=== PATIENT | male | born 1990 | race Two or more races ===

== ENCOUNTER 2022-12-06 08:36 | Emergency (ER) | payer MEDICAID, SELFPAY ==
[2022-12-06 08:40] VITALS: BP 127/71; PULSE 85; RESP 16; TEMP 36.7; O2SAT 98; BMI 27.4
--- NOTE | 2022-12-06 09:07 | ED.SKABFB ---
HPI - Skin/Abscess/Foreign Bdy General Chief complaint: Skin/Abscess/Foreign Body Stated complaint: Posion Leann? Rash all over body Time Seen by Provider: 12/06/22 09:06 Source: patient, RN notes reviewed and old records reviewed Mode of arrival: ambulatory History of Present Illness HPI narrative: 32-year-old male with no significant past medical history presenting to the ED complaining of pruritic rash diffusely over body x 3 days s/p doing yard work. Patient suspects poison leann or poison oak. Denies other new exposures, new medications, SOB, wheezing, throat closing sensation, known tick or insect bites MD complaint: rash Related Data Previous Rx's Medication Instructions Recorded cetirizine 10 mg capsule (Zyrtec) 10 mg PO DAILY PRN allergy 12/06/22 symptoms #14 caps diphenhydramine HCl 25 mg capsule 25 mg PO TID PRN itching #14 caps 12/06/22 (Benadryl) hydrocortisone 1 % lotion 1 appl topical BID PRN rash #120 mL 12/06/22 (Anti-Itch (hydrocortisone)) prednisone 20 mg tablet 40 mg PO DAILY 5 days #10 tabs 12/06/22 Allergies Allergy/AdvReac Type Severity Reaction Status Date / Time No Known Allergies Allergy Unverified 03/03/20 19:39 [No Known Allergies*] Review of Systems Review of Systems: Constitutional:No Fever, No Chills ENT/Mouth: No Ear Pain, No Nasal Congestion, No Hoarseness, No sore throat, No Rhinorrhea, No Swallowing Difficulty Cardiovascular: No Chest Pain, No SOB Respiratory: No Cough, No Sputum, No Wheezing Gastrointestinal: No Nausea, No Vomiting, No Diarrhea, No Constipation, No Abdominal pain Musculoskeletal: No joint pain, No Myalgias, No Joint Swelling Skin: No Skin Lesions, + rash Neuro: No Weakness, No Numbness, No Paresthesias Yes all other systems are reviewed and are negative Constitutional: Constitutional: Reports as per [facility] Past Medical History Attestation statement: The following information was validated with the patient. Source: old records reviewed Social History Social History Advance Directives: No Advance Directives Information Provided: No Physical Exam Vital Signs: Vital Signs: Last Vital Signs Temp 98.0 F 12/06/22 08:40 Pulse 85 12/06/22 08:40 Resp 16 12/06/22 08:40 BP 127/71 12/06/22 08:40 Pulse Ox 98 12/06/22 08:40 O2 Del Method Room Air 12/06/22 08:40 BMI result Body Mass Index 27.4 Const: General: cooperative, healthy appearing and no acute distress Orientation/consciousness: patient oriented x3 Limitations: no limitations HEENT: Head: Yes normal to inspection and Yes atraumatic Ears: hearing grossly normal bilaterally General nose exam: Normal external nose present Face and sinus: Yes normal facial exam Mouth: Normal oral and palatal mucosa present Throat: Yes posterior oropharynx normal, Yes tonsils normal, Yes uvula midline, No uvula laterally displaced and No uvular edema Eyes: General: appearance normal, both eyes and all related structures EOM: EOMs intact bilaterally Neck: Neck: Yes normal visual inspection and Yes no meningeal signs Resp: Effort & Inspection: normal respiratory effort, no respiratory distress and no stridor Auscultation: clear to auscultation bilaterally Cardio: Rate: regular rate Skin: Other: + diffuse erythematous patches/raised streaks noted to abdomen/chest, upper extremities, and lower extremities. No vesicles. No warmth, drainage, fluctuance or induration. No mucous membrane or palm/sole involvement Wounds: no wounds Neuro: General: patient oriented x3, tone normal and no meningeal signs Gait exam (Neuro): Normal gait present Extrem: General: Yes normal to inspection Medications Administered Discontinued Medications Generic Name Dose Route Start Last Admin Trade Name Freq PRN Reason Stop Dose Admin Diphenhydramine HCl 25 mg 12/06/22 09:17 12/06/22 09:28 Diphenhydramine Hcl 25 Mg Capsule PO 12/06/22 09:18 25 mg ONCE ONE Administration Loratadine 10 mg 12/06/22 09:17 12/06/22 09:28 Loratadine 10 Mg Tablet PO 12/06/22 09:18 10 mg ONCE ONE Administration Prednisone 40 mg 12/06/22 09:17 12/06/22 09:28 Prednisone 20 Mg Tablet PO 12/06/22 09:18 40 mg ONCE ONE Administration Medical Decision Making Medical Decision Making MDM Narrative: 32-year-old male with no significant past medical history presenting to the ED complaining of pruritic rash diffusely over body x 3 days s/p doing yard work. On exam vital signs stable, NAD, nontoxic appearing, physical exam consistent with poison leann or poison oak vs dermatitis. Lower suspicion for allergic reaction, no evidence of anaphylaxis. Low suspicion for SJS/TENS Plan: P.o. prednisone, topical hydrocortisone, Benadryl Results discussed with patient including worrisome signs and symptoms and strict return precautions, and when to return to the emergency department. They verbalized understanding and feel safe for discharge at this time. Differential Diagnosis Differential Diagnoses: The differential diagnosis associated with the presentation includes As above Admission/Observation Consideration of admission/observation: Escalation of care including admission/observation considered Lab Data MDM Lab Attestation statement: I reviewed the patient's lab results. Radiology Impression Discussion of test interpretation with radiology: I have reviewed the radiologist's reading. External Record Review External record reviewed: Inpatient record, Office record, Outpatient record, Prior outpatient labs, Prior outpatient radiology, Primary care record and Outside ED record Tests considered The following testing was considered but not selected: As above Discharge Plan Discharge Clinical Impression: Poison leann Patient Disposition: Home, Self-Care Instructions: Poison Leann (ED) Additional Instructions: Avoid itching her rash. Prednisone as an oral steroid, hydrocortisone as a topical steroid, apply to rash only, avoid application to face, genital regions, hands and feet as potentially can discolored your scan. In addition you should take Benadryl however this will make you drowsy, do not drive while taking Benadryl Zyrtec can be taking daily in the morning this will not make you drowsy If symptoms persist or worsen you develop any shortness of breath, wheezing, throat closing sensation return to the ED Prescriptions: New prednisone 20 mg tablet 40 mg PO DAILY 5 Days Qty: 10 0RF diphenhydramine HCl [Benadryl] 25 mg capsule 25 mg PO TID PRN (Reason: itching) Qty: 14 0RF hydrocortisone [Anti-Itch (HC)] 1 % lotion 1 appl topical BID PRN (Reason: rash) Qty: 120 0RF Rx Instructions: Avoid application to face, Teressa so region, hands and feet as potentially can discolored skin Zyrtec 10 mg capsule 10 mg PO DAILY PRN (Reason: allergy symptoms) Qty: 14 0RF Referrals: [facility] [place] [Primary Care Provider] - 5 days Interventions: ED Discharge Assessment Last Done: 12/06/22 09:36
[2022-12-06] MEDS: diphenhydrAMINE HCL 25 MG CAPSULE PO (09:28)
[2022-12-06] MEDS: predniSONE 20 MG TABLET 40 MG PO (09:28)
[2022-12-06] MEDS: Loratadine 10 MG TABLET PO (09:28)
--- NOTE | 2022-12-06 09:34 | PC.NURSE ---
Patient presents after interaction with poison arlen. Patient denies pain but has itchy to most of his body. Patient is otherwise well appearing.
== END 2022-12-06 09:37 | disposition home or self-care (01) ==
PROVIDERS: Emergency Provider Student in an Organized Health Care Education/Training Program
DX: L23.7 Allergic contact dermatitis due to plants, except food (principal)
CPT/HCPCS: 99283

== ENCOUNTER 2023-03-07 21:08 | Emergency (ER) | payer MEDICAID, SELFPAY ==
--- NOTE | ~2023-03-07 | XR_ITS ---
EXAMINATION: XR WRIST, LEFT XR HAND, LEFT CLINICAL INFORMATION: Dogbite. COMPARISON: Radiograph of the left hand 06/14/2019. TECHNIQUE: 3 views of the left wrist/hand were obtained. FINDINGS: No acute fractures or malalignment. No unexpected radiopaque foreign bodies. No osseous erosions or abnormal soft tissue calcifications. Soft tissue thickening and possibly laceration along the ventral soft tissues of the wrist visualized on the lateral view. XR/XR hand wrist LT IMPRESSION: 1. No acute fractures or malalignment. 2. No unexpected radiopaque foreign bodies. 3. Soft tissue thickening and possibly laceration along the ventral aspect of the wrist. Correlate with physical examination.
[2023-03-07 21:52] VITALS: BP 118/72; PULSE 66; RESP 14; TEMP 37.1; O2SAT 98; BMI 31.9
[2023-03-08 00:29] VITALS: BP 119/72; PULSE 60; RESP 14; O2SAT 99
[2023-03-08] MEDS: Amoxicillin/Potassium Clav 875 MG TABLET PO (03:18)
[2023-03-08] MEDS: Bacitracin Oint 0.9 GM PACKET 1 APPL TOPICAL (03:18)
--- NOTE | 2023-03-08 03:20 | ED_ITS ---
HPI - Animal Bite General Chief Complaint: Animal Bite Stated Complaint: dog bite left hand Time Seen by Provider: 03/08/23 03:11 Source: patient Mode of arrival: ambulatory Limitations: no limitations History of Present Illness HPI narrative: Pain got bit by his own dog when he tried to feed him left hand dog behaving normally otherwise came with puncture wound on the dorsum and the plantar aspect of the left hand Related Data Previous Rx's Medication Instructions Recorded cetirizine 10 mg capsule (Zyrtec) 10 mg PO DAILY PRN allergy 12/06/22 symptoms #14 caps diphenhydramine HCl 25 mg capsule 25 mg PO TID PRN itching #14 caps 12/06/22 (Benadryl) hydrocortisone 1 % lotion 1 appl topical BID PRN rash #120 mL 12/06/22 (Anti-Itch (hydrocortisone)) prednisone 20 mg tablet 40 mg (2 x 20 mg) PO DAILY 5 days 12/06/22 #10 tabs amoxicillin 875 mg-potassium 1 tab PO BID #20 tabs 03/08/23 clavulanate 125 mg tablet Allergies Allergy/AdvReac Type Severity Reaction Status Date / Time No Known Allergies Allergy Unverified 03/03/20 19:39 [No Known Allergies*] Review of Systems 2 Review of Systems: Yes all other systems are reviewed and are negative PMFSH Social History Social History Advance Directives: No Advance Directives Information Provided: Yes Physical Exam ED Vital Signs: Vital Signs - 24 hr 03/07/23 21:52 03/08/23 00:29 Temperature 98.8 F Pulse Rate 66 60 Respiratory Rate 14 14 Blood Pressure 118/72 119/72 Pulse Oximetry 98 99 Oxygen Delivery Method Room Air Room Air BMI result Body Mass Index 31.9 Appearance: Alert. Oriented X3. No acute distress. Extrem Hand/finger images: 2 1. Puncture wound left palmar aspect and dorsum neurovascular intact bones intact Medications Administered Discontinued Medications Generic Name Dose Route Start Last Admin Trade Name Freq PRN Reason Stop Dose Admin Amoxicillin/Clavulanate Potassium 875 mg 03/08/23 03:12 03/08/23 03:18 Amoxicillin/Potassium Clav 875 Mg Tablet PO 03/08/23 03:13 875 mg ONCE ONE Administration Bacitracin 1 appl 03/08/23 03:13 03/08/23 03:18 Bacitracin Oint 0.9 Gm Packet TOPICAL 03/08/23 03:14 1 appl ONCE ONE Administration Protocol Medical Decision Making Medical Decision Making MDM Narrative: UNcompleted dog bite which can be observed at home discharged on Augmentin wound was cleaned in the ER Radiology Impression Discussion of test interpretation with radiology: I have reviewed the radiologist's reading. Discharge Plan Discharge Clinical Impression: Dog bite Patient Disposition: Home, Self-Care Instructions: Animal Bite (ED) Additional Instructions: Local care as advised Take antibiotics to avoid infection Prescriptions: New amoxicillin-pot clavulanate 875-125 mg tablet 1 tab PO BID Qty: 20 0RF No Action prednisone 20 mg tablet 40 mg PO DAILY 5 Days Qty: 10 0RF diphenhydramine HCl [Benadryl] 25 mg capsule 25 mg PO TID PRN (Reason: itching) Qty: 14 0RF hydrocortisone [Anti-Itch (HC)] 1 % lotion 1 appl topical BID PRN (Reason: rash) Qty: 120 0RF Rx Instructions: Avoid application to face, Teressa so region, hands and feet as potentially can discolored skin Zyrtec 10 mg capsule 10 mg PO DAILY PRN (Reason: allergy symptoms) Qty: 14 0RF
== END 2023-03-08 03:24 | disposition home or self-care (01) ==
PROVIDERS: Emergency Provider Internal Medicine
DX: S61.452A Open bite of left hand, initial encounter (principal); W54.0XXA Bitten by dog, initial encounter; Y93.9 Activity, unspecified; Y92.9 Unspecified place or not applicable; Y99.9 Unspecified external cause status; Z79.899 Other long term (current) drug therapy
CPT/HCPCS: 73110; 73130; 99282; 99283

== ENCOUNTER 2023-05-23 18:10 | Inpatient (IN) | payer OTHER, SELFPAY ==
[2023-05-23 18:37] VITALS: BMI 23.0
[2023-05-23 18:38] VITALS: BP 137/77; PULSE 88; RESP 18; TEMP 36.8; O2SAT 97
--- NOTE | 2023-05-23 18:39 | PC.ADMIT ---
Nursing admission note: 32 year old male DX: Unspecified depressive disorder. Referred for treatment by CARE team. Signed conditional voluntary for admission. Patient was seen by [facility] specialist due to suicidal ideation. Reported increased depression due to homelessness and life stress. Reported feeling overwhelmed and hopeless. Reports no prior hospitalizations, no current out patient providers. Prior attempt to hang self approximately 2 years ago. History of past self harming behavior of cutting. No acute medical problems, history of asthma as child. NKA. COVID negative. TOX screen positive for cannabis. Nursing assessment to be completed. See crisis evaluation for details.
[2023-05-23] MEDS: Acetaminophen 325 MG TABLET 650 MG PO (19:02)
[2023-05-23 20:00] VITALS: BP 117/64; PULSE 69; RESP 16; TEMP 36.7; O2SAT 99
[2023-05-23] MEDS: traZODone HCL 50 MG TABLET PO ×2 (21:25→23:10)
[2023-05-23] MEDS: hydrOXYzine HCL 25 MG TABLET PO (23:34)
[2023-05-24 08:32] VITALS: BP 121/82; PULSE 93; RESP 16; TEMP 36.2; O2SAT 100
[2023-05-24 08:37] LABS: Estimated Average Glucose 100 mg/dL; Hemoglobin A1c % 5.1 % (<6.0)
[2023-05-24 08:50] LABS: Alanine Aminotransferase 27 U/L (0-40); Albumin Level 4.5 g/dL (3.5-5.0); Alkaline Phosphatase 61 U/L (39-117); Anion Gap 13 (12-20); Aspartate Amino Transferase 26 U/L (5-37); Bilirubin Total 0.3 mg/dL (0.0-1.0); Blood Urea Nitrogen 12 mg/dL (9-16); Calcium 9.5 mg/dL (8.4-10.2); Carbon Dioxide 24 mmol/L (22-29); Chloride 108 mmol/L (96-108); Cholesterol 142 mg/dL (<200); Creatinine Clr Calc Pharmacy 93.9; Estimated Glomerular Filt Rate > 60; Glucose Fasting 102 mg/dL (60-99); HDL Cholesterol 40 mg/dL (>40); LDL Cholesterol Calculated 72 mg/dL (<100); Magnesium 1.8 mg/dL (1.6-2.6); Potassium 4.7 mmol/L (3.3-5.1); Sodium 140 mmol/L (135-145); Total Protein 7.4 g/dL (6.5-8.0); Triglycerides 154 mg/dL (<150)
[2023-05-24 09:04] LABS: Free T4 (Free Thyroxine) 0.74 ng/dL (0.71-1.85); Thyroid Stimulating Hormone 2.03 uIU/mL (0.32-4.0)
[2023-05-24 09:09] LABS: Glucose, Whole Blood 97 mg/dL (60-115)
[2023-05-24 09:16] LABS: Folate 8.8 ng/mL (> or = 4.0); Vitamin B12 413 pg/mL (200-900)
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
[2023-05-24] MEDS: Acetaminophen 325 MG TABLET 650 MG PO ×2 (12:22→22:38)
[2023-05-24] MEDS: hydrOXYzine HCL 25 MG TABLET PO ×2 (15:43→21:03)
[2023-05-24] MEDS: Thiamine HCL 100 MG TABLET 50 MG PO (17:06)
[2023-05-24] MEDS: LORazepam 1 MG TABLET PO ×2 (17:06→22:40)
[2023-05-24] MEDS: Multivitamin TABLET 1 TAB PO (17:06)
[2023-05-24] MEDS: Folic Acid 1 MG TABLET PO (17:06)
[2023-05-24 21:15] VITALS: BP 128/73; PULSE 74; RESP 14; TEMP 36.7; O2SAT 98
[2023-05-24] MEDS: traZODone HCL 50 MG TABLET PO (22:38)
[2023-05-24] MEDS: Famotidine 20 MG TABLET PO (22:40)
[2023-05-24] MEDS: cloNIDine HCL 0.1 MG TABLET PO (22:40)
[2023-05-25 07:15] VITALS: BP 133/78; PULSE 88; RESP 18; TEMP 36.1; O2SAT 98
[2023-05-25] MEDS: cloNIDine HCL 0.1 MG TABLET PO ×2 (09:09→21:47)
[2023-05-25] MEDS: Multivitamin TABLET 1 TAB PO (09:09)
[2023-05-25] MEDS: Thiamine HCL 100 MG TABLET 50 MG PO (09:09)
[2023-05-25] MEDS: Folic Acid 1 MG TABLET PO (09:10)
--- NOTE | 2023-05-25 13:21 | HO.PHPPROGNO ---
Subjective Subjective Date of Service: 05/25/23 Reason For Visit: Unspecified depressive disorder Interim History: Patient was seen and discussed in rounds today. Records and plans were reviewed. He has been having some diarrhea which he states is improving. Eating and sleeping up to 7 hours. Last night he had night sweats. He is not on an SSRI. No changes were made today Review of Systems Review of Systems Diarrhea Yes all other systems are reviewed and are negative Mental Status Exam Mental Status Exam Narrative: In today's visit he is alert, pleasant and interactive. Soft-spoken speech. Moderate eye contact. Affect is appropriate with no signs of psychosis, depression or anxiety. No SI. Cognitively intact. Judgment and Diagnostics Vital Signs (24Hr): Vital Signs - 24 hr 05/24/23 21:15 05/25/23 07:15 Temperature 98.0 F 97.0 F Pulse Rate 74 88 Respiratory Rate 14 18 Blood Pressure 128/73 133/78 Pulse Oximetry 98 98 Oxygen Delivery Method Room Air Room Air BMI result Body Mass Index 23.0 Labs 05/24/23 08:13 Labs: Laboratory Results - last 48 hr 05/24/23 05/24/23 08:13 09:05 Sodium 140 Potassium 4.7 Chloride 108 Carbon Dioxide 24 Anion Gap 13 BUN 12 Creatinine 0.88 Estim Creat Clear Calc 93.9 Estimated GFR > 60 POC Glucose 97 Fasting Glucose 102 H Estimat Average Glucose 100 Hemoglobin A1c % 5.1 Calcium 9.5 Magnesium 1.8 Total Bilirubin 0.3 AST 26 ALT 27 Alkaline Phosphatase 61 Total Protein 7.4 Albumin 4.5 Triglycerides 154 H Cholesterol 142 LDL Cholesterol, Calc 72 HDL Cholesterol 40 L Vitamin B12 413 Folate 8.8 TSH 2.03 Free T4 0.74 Assessment & Plan Assessment & Plan (1) Cocaine abuse: Status: Acute Code(s): F14.10 - Cocaine abuse, uncomplicated (2) MDD (major depressive disorder): Status: Acute Code(s): F32.9 - Major depressive disorder, single episode, unspecified Plan 05/25: Continue current plans and regimen Certification I certify that partial hospital treatment is medically necessary due to the symptoms and problems resulting from the patient's mental illness and the failure to treat the patient at the partial hospital level of care would likely result in the patient requiring inpatient psychiatric care which could not be prevented at a less intensive level of care. Total time managing care of this patient today ____ minutes. Discharge Plan Discharge Referrals: [facility] [Primary Care Provider] - 1 Week Discharge Medications: No Action Zyrtec 10 mg capsule 10 mg PO DAILY PRN (Reason: allergy symptoms) Qty: 14 0RF
--- NOTE | 2023-05-25 13:29 | HO.PSYCHPN ---
Subjective Subjective Date of Service: 05/25/23 Reason For Visit: Unspecified depressive disorder Interim History: Patient was seen and discussed in rounds today. Records and plans were reviewed. He had been having some diarrhea which is improving. Eating and sleeping 7 hours. He had night sweats last night. He is not on an SSRI. He is scoring low on his CIWA. No changes were made today Review of Systems Review of Systems Diarrhea Yes all other systems are reviewed and are negative Mental Status Exam Mental Status Exam Narrative: In today's visit he is alert, oriented and pleasant. Normal speech. Moderate eye contact. Appropriate and constricted affect. No signs of psychosis. No SI. Cognitively intact. Judgment is in Diagnostics Vital Signs (24Hr): Vital Signs - 24 hr 05/24/23 21:15 05/25/23 07:15 Temperature 98.0 F 97.0 F Pulse Rate 74 88 Respiratory Rate 14 18 Blood Pressure 128/73 133/78 Pulse Oximetry 98 98 Oxygen Delivery Method Room Air Room Air BMI result Body Mass Index 23.0 Labs 05/24/23 08:13 Labs: Laboratory Results - last 48 hr 05/24/23 05/24/23 08:13 09:05 Sodium 140 Potassium 4.7 Chloride 108 Carbon Dioxide 24 Anion Gap 13 BUN 12 Creatinine 0.88 Estim Creat Clear Calc 93.9 Estimated GFR > 60 POC Glucose 97 Fasting Glucose 102 H Estimat Average Glucose 100 Hemoglobin A1c % 5.1 Calcium 9.5 Magnesium 1.8 Total Bilirubin 0.3 AST 26 ALT 27 Alkaline Phosphatase 61 Total Protein 7.4 Albumin 4.5 Triglycerides 154 H Cholesterol 142 LDL Cholesterol, Calc 72 HDL Cholesterol 40 L Vitamin B12 413 Folate 8.8 TSH 2.03 Free T4 0.74 Medications Medications Current Medications Acetaminophen (Acetaminophen 325 Mg Tablet) 650 mg PO Q6H PRN PRN Reason: Headache/Pain Mild Scale (1-3) Last Admin: 05/24/23 22:38 Dose: 650 mg Al Hydroxide/Mg Hydroxide (Magnesium Hydrox/Alum Hydrox 30 Ml Oral.Susp) 30 ml PO Q6H PRN PRN Reason: Heartburn/Nausea Clonidine HCl (Clonidine Hcl 0.1 Mg Tablet) 0.1 mg PO BID PATSY; Protocol Last Admin: 05/25/23 09:09 Dose: 0.1 mg Famotidine (Famotidine 20 Mg Tablet) 20 mg PO BEDTIME PATSY Last Admin: 05/24/23 22:40 Dose: 20 mg Folic Acid (Folic Acid 1 Mg Tablet) 1 mg PO DAILY [facility] Last Admin: 05/25/23 09:10 Dose: 1 mg Hydroxyzine HCl (Hydroxyzine Hcl 25 Mg Tablet) 25 mg PO Q6H PRN PRN Reason: Anxiety Last Admin: 05/24/23 15:43 Dose: 25 mg Lorazepam (Lorazepam 1 Mg Tablet) 1 mg PO Q4H PRN PRN Reason: CIWA 6-12 Last Admin: 05/24/23 22:40 Dose: 1 mg Lorazepam (Lorazepam 1 Mg Tablet) 2 mg PO Q4H PRN PRN Reason: CIWA 13 and above Magnesium Hydroxide (Milk Of Magnesia 30 Ml Oral.Susp) 30 ml PO DAILY PRN PRN Reason: Constipation Multivitamins/Vitamin C (Multivitamin Tablet) 1 tab PO DAILY [facility] Last Admin: 05/25/23 09:09 Dose: 1 tab Simethicone (Simethicone 80 Mg Tab.Chew) 80 mg PO QIDWMHS PRN PRN Reason: Gas Thiamine HCl (Thiamine Hcl 100 Mg Tablet) 50 mg PO DAILY [facility] Last Admin: 05/25/23 09:09 Dose: 50 mg Trazodone HCl (Trazodone Hcl 50 Mg Tablet) 50 mg PO BEDTIME MRX1 PRN PRN Reason: Insomnia Last Admin: 05/24/23 22:38 Dose: 50 mg Allergies Allergies Allergy/AdvReac Type Severity Reaction Status Date / Time No Known Allergies Allergy Unverified 03/03/20 19:39 [No Known Allergies*] Assessment & Plan Assessment & Plan (1) Cocaine abuse: Status: Acute Code(s): F14.10 - Cocaine abuse, uncomplicated (2) MDD (major depressive disorder): Status: Acute Code(s): F32.9 - Major depressive disorder, single episode, unspecified Plan 05/25: Continue current plans and regimen Reason for continued inpatient stay Substantial Risk for: med/psych decompensation Time Spent With Patient Time: Total time managing care of this patient today ____ minutes.
[2023-05-25] MEDS: Acetaminophen 325 MG TABLET 650 MG PO (15:54)
[2023-05-25] MEDS: hydrOXYzine HCL 25 MG TABLET PO (15:54)
[2023-05-25 21:40] VITALS: BP 121/76; PULSE 79; RESP 18; TEMP 36.2; O2SAT 99
[2023-05-25] MEDS: traZODone HCL 50 MG TABLET PO (21:47)
[2023-05-25] MEDS: Famotidine 20 MG TABLET PO (21:47)
[2023-05-25] MEDS: LORazepam 1 MG TABLET PO (22:09)
--- NOTE | 2023-05-26 01:33 | PC.NURSE ---
Pt reported today that he is a PPD smoker. Pt would like to get a nicotine patch and gum as well. Will pass info to doctor in AM for order.
[2023-05-26 08:00] VITALS: BP 127/80; PULSE 88; RESP 16; TEMP 36.8; O2SAT 99
[2023-05-26] MEDS: cloNIDine HCL 0.1 MG TABLET PO ×2 (09:03→20:26)
[2023-05-26] MEDS: Folic Acid 1 MG TABLET PO (09:04)
[2023-05-26] MEDS: Multivitamin TABLET 1 TAB PO (09:04)
[2023-05-26] MEDS: Thiamine HCL 100 MG TABLET 50 MG PO (09:04)
--- NOTE | 2023-05-26 11:18 | HO.PSYCHPN ---
Subjective Subjective Date of Service: 05/26/23 Reason For Visit: Unspecified depressive disorder Subjective Notes: Conditional Voluntary Interim History: Patient was seen and discussed in rounds today. Records and plans were reviewed. He continues to score some on his CIWA. Endorses some depression and anxiety specially about discharge. He talked about his anger and being interested in maybe try being tried on a medication. I suggested discussing that with his psychiatrist tomorrow. He is requesting and nicotine patch. He thought he would be able to manage on his own but it has been difficult. 21 mg patch daily was ordered. He has vague SI but no plans or intent. No dangerous behaviors. Eating and sleeping adequately. Review of Systems Review of Systems Yes all other systems are reviewed and are negative Mental Status Exam Mental Status Exam Narrative: In today's visit he is alert, oriented and pleasant. Normal speech. Moderate eye contact. Appropriate and constricted affect. No signs of psychosis. No SI. Cognitively intact. Judgment is in Diagnostics Vital Signs (24Hr): Vital Signs - 24 hr 05/25/23 21:40 05/26/23 08:00 Temperature 97.2 F 98.3 F Pulse Rate 79 88 Respiratory Rate 18 16 Blood Pressure 121/76 127/80 Pulse Oximetry 99 99 Oxygen Delivery Method Room Air Room Air BMI result Body Mass Index 23.0 Labs 05/24/23 08:13 Medications Medications Current Medications Acetaminophen (Acetaminophen 325 Mg Tablet) 650 mg PO Q6H PRN PRN Reason: Headache/Pain Mild Scale (1-3) Last Admin: 05/25/23 15:54 Dose: 650 mg Al Hydroxide/Mg Hydroxide (Magnesium Hydrox/Alum Hydrox 30 Ml Oral.Susp) 30 ml PO Q6H PRN PRN Reason: Heartburn/Nausea Clonidine HCl (Clonidine Hcl 0.1 Mg Tablet) 0.1 mg PO BID PATSY; Protocol Last Admin: 05/26/23 09:03 Dose: 0.1 mg Famotidine (Famotidine 20 Mg Tablet) 20 mg PO BEDTIME PATSY Last Admin: 05/25/23 21:47 Dose: 20 mg Folic Acid (Folic Acid 1 Mg Tablet) 1 mg PO DAILY [facility] Last Admin: 05/26/23 09:04 Dose: 1 mg Hydroxyzine HCl (Hydroxyzine Hcl 25 Mg Tablet) 25 mg PO Q6H PRN PRN Reason: Anxiety Last Admin: 05/25/23 15:54 Dose: 25 mg Lorazepam (Lorazepam 1 Mg Tablet) 1 mg PO Q4H PRN PRN Reason: CIWA 6-12 Last Admin: 05/25/23 22:09 Dose: 1 mg Lorazepam (Lorazepam 1 Mg Tablet) 2 mg PO Q4H PRN PRN Reason: CIWA 13 and above Magnesium Hydroxide (Milk Of Magnesia 30 Ml Oral.Susp) 30 ml PO DAILY PRN PRN Reason: Constipation Multivitamins/Vitamin C (Multivitamin Tablet) 1 tab PO DAILY [facility] Last Admin: 05/26/23 09:04 Dose: 1 tab Simethicone (Simethicone 80 Mg Tab.Chew) 80 mg PO QIDWMHS PRN PRN Reason: Gas Thiamine HCl (Thiamine Hcl 100 Mg Tablet) 50 mg PO DAILY [facility] Last Admin: 05/26/23 09:04 Dose: 50 mg Trazodone HCl (Trazodone Hcl 50 Mg Tablet) 50 mg PO BEDTIME MRX1 PRN PRN Reason: Insomnia Last Admin: 05/25/23 21:47 Dose: 50 mg Allergies Allergies Allergy/AdvReac Type Severity Reaction Status Date / Time No Known Allergies Allergy Unverified 03/03/20 19:39 [No Known Allergies*] Assessment & Plan Assessment & Plan (1) Cocaine abuse: Status: Acute Code(s): F14.10 - Cocaine abuse, uncomplicated (2) MDD (major depressive disorder): Status: Acute Code(s): F32.9 - Major depressive disorder, single episode, unspecified Plan 05/25: Continue current plans and regimen 05/26:Continue current regimen and plans Reason for continued inpatient stay Substantial Risk for: med/psych decompensation Time Spent With Patient Time: Total time managing care of this patient today ____ minutes.
--- NOTE | 2023-05-26 11:59 | PC.NURSE ---
Pt reported vague SI stating I woke up but wish I hadn't , MD Parkinson made aware, no recommendations made at this time.
[2023-05-26] MEDS: Nicotine 21 MG PATCH.TD24 TRANSDERMA (12:21)
[2023-05-26] MEDS: Acetaminophen 325 MG TABLET 650 MG PO (13:11)
[2023-05-26] MEDS: LORazepam 1 MG TABLET PO ×2 (13:12→20:39)
[2023-05-26 19:40] VITALS: BP 139/74; PULSE 93; RESP 16; TEMP 37.5; O2SAT 98
[2023-05-26] MEDS: Famotidine 20 MG TABLET PO (20:26)
[2023-05-26] MEDS: traZODone HCL 50 MG TABLET PO (23:22)
[2023-05-26] MEDS: hydrOXYzine HCL 25 MG TABLET PO (23:24)
[2023-05-27 07:40] VITALS: BP 134/66; PULSE 65; TEMP 36.6; O2SAT 97
[2023-05-27] MEDS: Nicotine 21 MG PATCH.TD24 TRANSDERMA (08:20)
[2023-05-27] MEDS: Thiamine HCL 100 MG TABLET 50 MG PO (08:21)
[2023-05-27] MEDS: Folic Acid 1 MG TABLET PO (08:21)
[2023-05-27] MEDS: cloNIDine HCL 0.1 MG TABLET PO ×2 (08:21→21:59)
[2023-05-27] MEDS: Multivitamin TABLET 1 TAB PO (08:21)
--- NOTE | 2023-05-27 09:15 | HO.PSYCHPN ---
Subjective Subjective Date of Service: 05/27/23 Reason For Visit: Unspecified depressive disorder Subjective Notes: Conditional Voluntary Interim History: Reviewed with . Patient reports he continues to feel depressed . CIWA DC'd; pt reports he is no longer having withdrawal symptoms. Discussed starting on an SSRI; risks/benefits reviewed, patient agreed to trial. denies SI/HI/VH/AH. Medication Compliance: Yes Side effects from medications: No Attending Groups: Intermittent Review of Systems Constitutional: Reports as per HPI Eyes: Reports as per HPI Reports as per HPI Cardiovascular: Reports as per HPI Respiratory: Reports as per HPI Gastrointestinal: Reports as per HPI Genitourinary: Reports as per HPI Musculoskeletal: Reports as per HPI Skin/Breast: Reports as per HPI Reports as per HPI Psychiatric: Reports as per HPI Endocrine: Reports as per HPI Hematologic/Lymphatic: Reports as per HPI Allergic/Immunologic: Reports as per HPI Mental Status Exam Mental Status Exam Narrative: Pt is alert and oriented; behavior is cooperative, calm, tearful; dressed in casual attire; mood is described as depressed ; eye contact appropriate; Speech is normal rate, volume and prosody and not pressured; thought process is organized and goal directed; Thought content is on tx; otherwise pertinent to relevant topics and without any delusional content, paranoid ideations or grandiosity; denies SI/HI. There is no evidence of perceptual disturbance. Patients insight and judgment are fair. Diagnostics Vital Signs (24Hr): Vital Signs - 24 hr 05/26/23 19:40 05/27/23 07:40 Temperature 99.5 F 97.8 F Pulse Rate 93 65 Respiratory Rate 16 Blood Pressure 139/74 134/66 Pulse Oximetry 98 97 Oxygen Delivery Method Room Air Room Air BMI result Body Mass Index 23.0 Labs 05/24/23 08:13 Medications Medications Current Medications Acetaminophen (Acetaminophen 325 Mg Tablet) 650 mg PO Q6H PRN PRN Reason: Headache/Pain Mild Scale (1-3) Last Admin: 05/26/23 13:11 Dose: 650 mg Al Hydroxide/Mg Hydroxide (Magnesium Hydrox/Alum Hydrox 30 Ml Oral.Susp) 30 ml PO Q6H PRN PRN Reason: Heartburn/Nausea Clonidine HCl (Clonidine Hcl 0.1 Mg Tablet) 0.1 mg PO BID PATSY; Protocol Last Admin: 05/27/23 08:21 Dose: 0.1 mg Famotidine (Famotidine 20 Mg Tablet) 20 mg PO BEDTIME [facility] Last Admin: 05/26/23 20:26 Dose: 20 mg Folic Acid (Folic Acid 1 Mg Tablet) 1 mg PO DAILY [facility] Last Admin: 05/27/23 08:21 Dose: 1 mg Hydroxyzine HCl (Hydroxyzine Hcl 25 Mg Tablet) 25 mg PO Q6H PRN PRN Reason: Anxiety Last Admin: 05/26/23 23:24 Dose: 25 mg Lorazepam (Lorazepam 1 Mg Tablet) 1 mg PO Q4H PRN PRN Reason: CIWA 6-12 Last Admin: 05/26/23 20:39 Dose: 1 mg Lorazepam (Lorazepam 1 Mg Tablet) 2 mg PO Q4H PRN PRN Reason: CIWA 13 and above Magnesium Hydroxide (Milk Of Magnesia 30 Ml Oral.Susp) 30 ml PO DAILY PRN PRN Reason: Constipation Multivitamins/Vitamin C (Multivitamin Tablet) 1 tab PO DAILY [facility] Last Admin: 05/27/23 08:21 Dose: 1 tab Nicotine (Nicotine 21 Mg Patch.Td24) 21 mg TRANSDERMA DAILY [facility] Last Admin: 05/27/23 08:20 Dose: 21 mg Simethicone (Simethicone 80 Mg Tab.Chew) 80 mg PO QIDWMHS PRN PRN Reason: Gas Thiamine HCl (Thiamine Hcl 100 Mg Tablet) 50 mg PO DAILY [facility] Last Admin: 05/27/23 08:21 Dose: 50 mg Trazodone HCl (Trazodone Hcl 50 Mg Tablet) 50 mg PO BEDTIME MRX1 PRN PRN Reason: Insomnia Last Admin: 05/26/23 23:22 Dose: 50 mg Allergies Allergies Allergy/AdvReac Type Severity Reaction Status Date / Time No Known Allergies Allergy Unverified 03/03/20 19:39 [No Known Allergies*] Assessment & Plan Assessment & Plan (1) MDD (major depressive disorder): Status: Acute Code(s): F32.9 - Major depressive disorder, single episode, unspecified (2) Cocaine abuse: Status: Acute Code(s): F14.10 - Cocaine abuse, uncomplicated Plan Patient is a 32 year old male with no prior hx of psychiatric care who self presented to [facility] d/t suicidal ideation secondary to increased depression d/t homelessness and life stressors. Plan: CV 15 minute safety checks Referral to outpatient providers Possible referral to substance abuse program? CIWA Thiamine Folic acid Multivitamin Ativan 1mg PO Q4hr PRN CIWA 6-12 Ativan 2mg PO Q4hr PRN CIWA 13 and above Start: Clonidine 0.1mg PO BID 05/25: Continue current plans and regimen 05/26:Continue current regimen and plans 05/27: Patient reports he continues to feel depressed . CIWA DC'd; pt reports he is no longer having withdrawal symptoms. Discussed starting on an SSRI; risks/benefits reviewed, patient agreed to trial. denies SI/HI/VH/AH. DC Ativan orders, thiamine and folic acid. Start: Lexapro 10mg PO bedtime Patient educated on: diagnosis, medication risk/benefits, substance abuse and therapeutic strategies Informed Consent: understands Reason for continued inpatient stay Substantial Risk for: med/psych decompensation Time Spent With Patient Time: Total time managing care of this patient today _30___ minutes.
[2023-05-27] MEDS: Loperamide HCl 2 MG CAPSULE PO (10:19)
[2023-05-27] MEDS: hydrOXYzine HCL 25 MG TABLET PO (17:02)
[2023-05-27] MEDS: Simethicone 80 MG TAB.CHEW PO (17:03)
[2023-05-27] MEDS: LORazepam 1 MG TABLET 2 MG PO (18:52)
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
[2023-05-27] MEDS: Acetaminophen 325 MG TABLET 650 MG PO (20:05)
[2023-05-27 21:30] VITALS: BP 138/85; PULSE 97; TEMP 36.9; O2SAT 97
[2023-05-27] MEDS: Escitalopram Oxalate 10 MG TABLET PO (21:59)
[2023-05-27] MEDS: Famotidine 20 MG TABLET PO (21:59)
[2023-05-27] MEDS: hydrOXYzine HCL 50 MG TABLET PO (21:59)
[2023-05-27] MEDS: traZODone HCL 50 MG TABLET PO ×2 (21:59→23:37)
[2023-05-28 07:40] VITALS: BP 100/59; PULSE 74; RESP 16; TEMP 36.7; O2SAT 98
[2023-05-28] MEDS: Multivitamin TABLET 1 TAB PO (08:21)
[2023-05-28] MEDS: cloNIDine HCL 0.1 MG TABLET PO ×2 (08:21→21:10)
[2023-05-28] MEDS: Nicotine 21 MG PATCH.TD24 TRANSDERMA (08:21)
[2023-05-28] MEDS: Acetaminophen 325 MG TABLET 650 MG PO ×2 (08:32→19:14)
--- NOTE | 2023-05-28 09:11 | HO.PSYCHPN ---
Subjective Subjective Date of Service: 05/28/23 Reason For Visit: Unspecified depressive disorder Subjective Notes: Conditional Voluntary Interim History: Reviewed with . Patient reports he continues to feel depressed . Patient stated, I'm feeling a little better than yesterday. I had a panic attack out of nowhere yesterday . Patient reports suicidal ideation with no plan; pt stated, I don't know why I feel this way . Observed social with peers. denies HI/VH/AH. Medication Compliance: Yes Side effects from medications: No Review of Systems Constitutional: Reports as per HPI Eyes: Reports as per HPI Reports as per HPI Cardiovascular: Reports as per HPI Respiratory: Reports as per HPI Gastrointestinal: Reports as per HPI Genitourinary: Reports as per HPI Musculoskeletal: Reports as per HPI Skin/Breast: Reports as per HPI Reports as per HPI Psychiatric: Reports as per HPI Endocrine: Reports as per HPI Hematologic/Lymphatic: Reports as per HPI Allergic/Immunologic: Reports as per HPI Mental Status Exam Mental Status Exam Narrative: Pt is alert and oriented; behavior is cooperative, calm; dressed in casual attire; mood is described as depressed ; eye contact appropriate; Speech is normal rate, volume and prosody and not pressured; thought process is organized and goal directed; Thought content is on tx; otherwise pertinent to relevant topics and without any delusional content, paranoid ideations or grandiosity; denies HI.Pt reports suicidal ideation at this time. There is no evidence of perceptual disturbance. Diagnostics Vital Signs (24Hr): Vital Signs - 24 hr 05/27/23 21:30 05/28/23 07:40 Temperature 98.5 F 98.0 F Pulse Rate 97 74 Respiratory Rate 16 Blood Pressure 138/85 100/59 L Pulse Oximetry 97 98 Oxygen Delivery Method Room Air Room Air BMI result Body Mass Index 23.0 Labs 05/24/23 08:13 Medications Medications Current Medications Acetaminophen (Acetaminophen 325 Mg Tablet) 650 mg PO Q6H PRN PRN Reason: Headache/Pain Mild Scale (1-3) Last Admin: 05/28/23 08:32 Dose: 650 mg Al Hydroxide/Mg Hydroxide (Magnesium Hydrox/Alum Hydrox 30 Ml Oral.Susp) 30 ml PO Q6H PRN PRN Reason: Heartburn/Nausea Clonidine HCl (Clonidine Hcl 0.1 Mg Tablet) 0.1 mg PO BID PATSY; Protocol Last Admin: 05/28/23 08:21 Dose: 0.1 mg Escitalopram Oxalate (Escitalopram Oxalate 10 Mg Tablet) 10 mg PO BEDTIME PATSY Last Admin: 05/27/23 21:59 Dose: 10 mg Famotidine (Famotidine 20 Mg Tablet) 20 mg PO BEDTIME PATSY Last Admin: 05/27/23 21:59 Dose: 20 mg Hydroxyzine HCl (Hydroxyzine Hcl 25 Mg Tablet) 25 mg PO Q6H PRN PRN Reason: Anxiety Last Admin: 05/27/23 17:02 Dose: 25 mg Hydroxyzine HCl (Hydroxyzine Hcl 50 Mg Tablet) 50 mg PO Q6H PRN PRN Reason: Restlessness Last Admin: 05/27/23 21:59 Dose: 50 mg Loperamide HCl (Loperamide Hcl 2 Mg Capsule) 2 mg PO Q6H PRN PRN Reason: Loose Stool Last Admin: 05/27/23 10:19 Dose: 2 mg Magnesium Hydroxide (Milk Of Magnesia 30 Ml Oral.Susp) 30 ml PO DAILY PRN PRN Reason: Constipation Multivitamins/Vitamin C (Multivitamin Tablet) 1 tab PO DAILY [facility] Last Admin: 05/28/23 08:21 Dose: 1 tab Nicotine (Nicotine 21 Mg Patch.Td24) 21 mg TRANSDERMA DAILY [facility] Last Admin: 05/28/23 08:21 Dose: 21 mg Simethicone (Simethicone 80 Mg Tab.Chew) 80 mg PO QIDWMHS PRN PRN Reason: Gas Last Admin: 05/27/23 17:03 Dose: 80 mg Trazodone HCl (Trazodone Hcl 50 Mg Tablet) 50 mg PO BEDTIME MRX1 PRN PRN Reason: Insomnia Last Admin: 05/27/23 23:37 Dose: 50 mg Allergies Allergies Allergy/AdvReac Type Severity Reaction Status Date / Time No Known Allergies Allergy Unverified 03/03/20 19:39 [No Known Allergies*] Assessment & Plan Assessment & Plan (1) MDD (major depressive disorder): Status: Acute Code(s): F32.9 - Major depressive disorder, single episode, unspecified (2) Cocaine abuse: Status: Acute Code(s): F14.10 - Cocaine abuse, uncomplicated Plan Patient is a 32 year old male with no prior hx of psychiatric care who self presented to [facility] d/t suicidal ideation secondary to increased depression d/t homelessness and life stressors. Plan: CV 15 minute safety checks Referral to outpatient providers Possible referral to substance abuse program? CIWA Thiamine Folic acid Multivitamin Ativan 1mg PO Q4hr PRN CIWA 6-12 Ativan 2mg PO Q4hr PRN CIWA 13 and above Start: Clonidine 0.1mg PO BID 05/25: Continue current plans and regimen 05/26:Continue current regimen and plans 05/27: Patient reports he continues to feel depressed . CIWA DC'd; pt reports he is no longer having withdrawal symptoms. Discussed starting on an SSRI; risks/benefits reviewed, patient agreed to trial. denies SI/HI/VH/AH. DC Ativan orders, thiamine and folic acid. Start: Lexapro 10mg PO bedtime 05/28: Patient reports he continues to feel depressed . Patient stated, I'm feeling a little better than yesterday. I had a panic attack out of nowhere yesterday . Patient reports suicidal ideation with no plan; pt stated, I don't know why I feel this way . Observed social with peers. denies HI/VH/AH. Continue current tx plan. Patient educated on: diagnosis, medication risk/benefits, substance abuse and therapeutic strategies Informed Consent: understands Reason for continued inpatient stay Substantial Risk for: harm to self and med/psych decompensation Time Spent With Patient Time: Total time managing care of this patient today _30___ minutes.
--- NOTE | 2023-05-28 18:26 | PC.NURSE ---
Addendum entered by Helen Ceja RN 05/28/23 19:04: Pt received PRN Zofran 4mg. Provider also placed orders for Stat respiratory panel which was sent down to the lab. Original Note: At 1815 pt began vomiting which was witnessed by staff. RN reached out to aeronautical inspector provider to request orders for PRN Zofran, awaiting orders.
[2023-05-28] MEDS: Ondansetron ODT 4 MG TAB.RAPDIS TRANSLINGU (18:49)
[2023-05-28 19:35] LABS: Influenza A PCR NEGATIVE (Negative); Influenza B PCR NEGATIVE (Negative); Resp Syncy Virus RNA Qual PCR NEGATIVE (Negative); SARS COV2 PCR INHOUSE NEGATIVE (Negative)
[2023-05-28 20:05] VITALS: BP 117/74; PULSE 84; RESP 16; TEMP 36.7; O2SAT 96
[2023-05-28] MEDS: hydrOXYzine HCL 50 MG TABLET PO (21:10)
[2023-05-28] MEDS: Famotidine 20 MG TABLET PO (21:10)
[2023-05-28] MEDS: Escitalopram Oxalate 10 MG TABLET PO (21:10)
[2023-05-28] MEDS: traZODone HCL 50 MG TABLET PO (21:10)
[2023-05-29] MEDS: traZODone HCL 50 MG TABLET PO ×3 (00:28→23:29)
[2023-05-29 07:45] VITALS: BP 129/66; PULSE 78; RESP 16; TEMP 36; O2SAT 96
--- NOTE | 2023-05-29 09:16 | P.PNPSI_ITS ---
Subjective Subjective Date of Service: 05/29/23 Reason For Visit: Unspecified depressive disorder Subjective Notes: Conditional Voluntary Interim History: Reviewed with . Patient reports feeling good today. Patient stated, my mom is going to come see me today; I'm looking forward to that . Patient reports he plans to return to my tent when I leave here ; pt stated, my filled out a bunch of apartment applications and were just waiting to hear back from someone . denies SI/HI/VH/AH. Medication Compliance: Yes Side effects from medications: No Review of Systems Constitutional: Reports as per HPI Eyes: Reports as per HPI Reports as per HPI Cardiovascular: Reports as per HPI Respiratory: Reports as per HPI Gastrointestinal: Reports as per HPI Genitourinary: Reports as per HPI Musculoskeletal: Reports as per HPI Skin/Breast: Reports as per HPI Reports as per HPI Psychiatric: Reports as per HPI Endocrine: Reports as per HPI Hematologic/Lymphatic: Reports as per HPI Allergic/Immunologic: Reports as per HPI Mental Status Exam Mental Status Exam Narrative: Pt is alert and oriented; behavior is cooperative, calm; dressed in casual attire; mood is described as good ; eye contact appropriate; Speech is normal rate, volume and prosody and not pressured; thought process is organized and goal directed; Thought content is on tx; otherwise pertinent to relevant topics and without any delusional content, paranoid ideations or grandiosity; denies SI/HI. There is no evidence of perceptual disturbance. Diagnostics Vital Signs (24Hr): Vital Signs - 24 hr 05/28/23 20:05 05/29/23 07:45 Temperature 98.1 F 96.8 F Pulse Rate 84 78 Respiratory Rate 16 16 Blood Pressure 117/74 129/66 Pulse Oximetry 96 96 Oxygen Delivery Method Room Air Room Air BMI result Body Mass Index 23.0 Labs 05/24/23 08:13 Labs: Laboratory Results - last 48 hr 05/28/23 18:52 Influenza Type A (PCR) NEGATIVE Influenza Type B (PCR) NEGATIVE RSV RNA Qual (PCR) NEGATIVE SARS-CoV-2 RNA (RT-PCR) NEGATIVE Medications Medications Current Medications Acetaminophen (Acetaminophen 325 Mg Tablet) 650 mg PO Q6H PRN PRN Reason: Headache/Pain Mild Scale (1-3) Last Admin: 05/28/23 19:14 Dose: 650 mg Al Hydroxide/Mg Hydroxide (Magnesium Hydrox/Alum Hydrox 30 Ml Oral.Susp) 30 ml PO Q6H PRN PRN Reason: Heartburn/Nausea Clonidine HCl (Clonidine Hcl 0.1 Mg Tablet) 0.1 mg PO BID [facility]; Protocol Last Admin: 05/28/23 21:10 Dose: 0.1 mg Escitalopram Oxalate (Escitalopram Oxalate 10 Mg Tablet) 10 mg PO BEDTIME PATSY Last Admin: 05/28/23 21:10 Dose: 10 mg Famotidine (Famotidine 20 Mg Tablet) 20 mg PO BEDTIME PATSY Last Admin: 05/28/23 21:10 Dose: 20 mg Hydroxyzine HCl (Hydroxyzine Hcl 50 Mg Tablet) 50 mg PO Q6H PRN PRN Reason: Restlessness Last Admin: 05/28/23 21:10 Dose: 50 mg Loperamide HCl (Loperamide Hcl 2 Mg Capsule) 2 mg PO Q6H PRN PRN Reason: Loose Stool Last Admin: 05/27/23 10:19 Dose: 2 mg Magnesium Hydroxide (Milk Of Magnesia 30 Ml Oral.Susp) 30 ml PO DAILY PRN PRN Reason: Constipation Multivitamins/Vitamin C (Multivitamin Tablet) 1 tab PO DAILY [facility] Last Admin: 05/28/23 08:21 Dose: 1 tab Nicotine (Nicotine 21 Mg Patch.Td24) 21 mg TRANSDERMA DAILY PATSY Last Admin: 05/28/23 08:21 Dose: 21 mg Ondansetron HCl (Ondansetron Odt 4 Mg Tab.Rapdis) 4 mg TRANSLINGU Q6H PRN PRN Reason: Nausea and Vomiting Last Admin: 05/28/23 18:49 Dose: 4 mg Simethicone (Simethicone 80 Mg Tab.Chew) 80 mg PO QIDWMHS PRN PRN Reason: Gas Last Admin: 05/27/23 17:03 Dose: 80 mg Trazodone HCl (Trazodone Hcl 50 Mg Tablet) 50 mg PO BEDTIME MRX1 PRN PRN Reason: Insomnia Last Admin: 05/29/23 00:28 Dose: 50 mg Allergies Allergies Allergy/AdvReac Type Severity Reaction Status Date / Time No Known Allergies Allergy Unverified 03/03/20 19:39 [No Known Allergies*] Assessment & Plan Assessment & Plan (1) MDD (major depressive disorder): Status: Acute Code(s): F32.9 - Major depressive disorder, single episode, unspecified (2) Cocaine abuse: Status: Acute Code(s): F14.10 - Cocaine abuse, uncomplicated Plan Patient is a 32 year old male with no prior hx of psychiatric care who self presented to [facility] d/t suicidal ideation secondary to increased depression d/t homelessness and life stressors. Plan: CV 15 minute safety checks Referral to outpatient providers Possible referral to substance abuse program? [facility] Thiamine Folic acid Multivitamin Ativan 1mg PO Q4hr PRN CIWA 6-12 Ativan 2mg PO Q4hr PRN CIWA 13 and above Start: Clonidine 0.1mg PO BID 05/25: Continue current plans and regimen 05/26:Continue current regimen and plans 05/27: Patient reports he continues to feel depressed . CIWA DC'd; pt reports he is no longer having withdrawal symptoms. Discussed starting on an SSRI; risks/benefits reviewed, patient agreed to trial. denies SI/HI/VH/AH. DC Ativan orders, thiamine and folic acid. Start: Lexapro 10mg PO bedtime 05/28: Patient reports he continues to feel depressed . Patient stated, I'm feeling a little better than yesterday. I had a panic attack out of nowhere yesterday . Patient reports suicidal ideation with no plan; pt stated, I don't know why I feel this way . Observed social with peers. denies HI/VH/AH. Continue current tx plan. 05/29: Patient reports feeling good today. Patient stated, my mom is going to come see me today; I'm looking forward to that . Patient reports he plans to return to my tent when I leave here ; pt stated, my filled out a bunch of apartment applications and were just waiting to hear back from someone . denies SI/HI/VH/AH. Patient educated on: diagnosis, medication risk/benefits and therapeutic strategies Informed Consent: understands Reason for continued inpatient stay Substantial Risk for: med/psych decompensation Time Spent With Patient Time: Total time managing care of this patient today _30___ minutes.
[2023-05-29] MEDS: Multivitamin TABLET 1 TAB PO (09:32)
[2023-05-29] MEDS: cloNIDine HCL 0.1 MG TABLET PO ×2 (09:32→20:21)
[2023-05-29] MEDS: Nicotine 21 MG PATCH.TD24 TRANSDERMA (09:32)
[2023-05-29] MEDS: Loperamide HCl 2 MG CAPSULE PO ×2 (09:37→20:27)
[2023-05-29] MEDS: Magnesium Hydrox/Alum Hydrox 30 ML ORAL.SUSP PO (10:37)
[2023-05-29] MEDS: Ondansetron ODT 4 MG TAB.RAPDIS TRANSLINGU ×2 (10:38→17:56)
[2023-05-29] MEDS: hydrOXYzine HCL 50 MG TABLET PO ×2 (11:34→20:21)
[2023-05-29 20:02] VITALS: BP 137/91; PULSE 72; RESP 18; TEMP 36.9; O2SAT 97
[2023-05-29] MEDS: Escitalopram Oxalate 10 MG TABLET PO (20:21)
[2023-05-29] MEDS: Famotidine 20 MG TABLET PO (20:21)
[2023-05-30 07:00] VITALS: BMI 23.8
[2023-05-30 07:45] VITALS: BP 116/57; PULSE 65; TEMP 36.2; O2SAT 97
--- NOTE | 2023-05-30 09:21 | HO.PSYCHPN ---
Subjective Subjective Date of Service: 05/30/23 Reason For Visit: Unspecified depressive disorder Subjective Notes: Conditional Voluntary Interim History: Reviewed with . Patient reports feeling good today. Pt stated, I feel ready to go. I decided I'm going to go stay at my aunts house rather than the tent . Patient reports he plans on following up with outpatient providers. denies SI/HI/VH/AH. Plan to discharge tomorrow morning. Medication Compliance: Yes Side effects from medications: No Attending Groups: Yes Review of Systems Constitutional: Reports as per HPI Eyes: Reports as per HPI Reports as per HPI Cardiovascular: Reports as per HPI Respiratory: Reports as per HPI Gastrointestinal: Reports as per HPI Genitourinary: Reports as per HPI Musculoskeletal: Reports as per HPI Skin/Breast: Reports as per HPI Reports as per HPI Psychiatric: Reports as per HPI Endocrine: Reports as per HPI Hematologic/Lymphatic: Reports as per HPI Allergic/Immunologic: Reports as per HPI Mental Status Exam Mental Status Exam Narrative: Pt is alert and oriented; behavior is cooperative, calm; dressed in casual attire; mood is described as good ; eye contact appropriate; Speech is normal rate, volume and prosody and not pressured; thought process is organized and goal directed; Thought content is on tx; otherwise pertinent to relevant topics and without any delusional content, paranoid ideations or grandiosity; denies SI/HI. There is no evidence of perceptual disturbance. Diagnostics Vital Signs (24Hr): Vital Signs - 24 hr 05/29/23 20:02 05/30/23 07:45 Temperature 98.5 F 97.1 F Pulse Rate 72 65 Respiratory Rate 18 Blood Pressure 137/91 H 116/57 L Pulse Oximetry 97 97 Oxygen Delivery Method Room Air Room Air BMI result Body Mass Index 23.0 Labs 05/24/23 08:13 Labs: Laboratory Results - last 48 hr 05/28/23 18:52 Influenza Type A (PCR) NEGATIVE Influenza Type B (PCR) NEGATIVE RSV RNA Qual (PCR) NEGATIVE SARS-CoV-2 RNA (RT-PCR) NEGATIVE Medications Medications Current Medications Acetaminophen (Acetaminophen 325 Mg Tablet) 650 mg PO Q6H PRN PRN Reason: Headache/Pain Mild Scale (1-3) Last Admin: 05/28/23 19:14 Dose: 650 mg Al Hydroxide/Mg Hydroxide (Magnesium Hydrox/Alum Hydrox 30 Ml Oral.Susp) 30 ml PO Q6H PRN PRN Reason: Heartburn/Nausea Last Admin: 05/29/23 10:37 Dose: 30 ml Clonidine HCl (Clonidine Hcl 0.1 Mg Tablet) 0.1 mg PO BID [facility]; Protocol Last Admin: 05/29/23 20:21 Dose: 0.1 mg Escitalopram Oxalate (Escitalopram Oxalate 10 Mg Tablet) 10 mg PO BEDTIME PATSY Last Admin: 05/29/23 20:21 Dose: 10 mg Famotidine (Famotidine 20 Mg Tablet) 20 mg PO BEDTIME PATSY Last Admin: 05/29/23 20:21 Dose: 20 mg Hydroxyzine HCl (Hydroxyzine Hcl 50 Mg Tablet) 50 mg PO Q6H PRN PRN Reason: Restlessness Last Admin: 05/29/23 20:21 Dose: 50 mg Loperamide HCl (Loperamide Hcl 2 Mg Capsule) 2 mg PO Q6H PRN PRN Reason: Loose Stool Last Admin: 05/29/23 20:27 Dose: 2 mg Magnesium Hydroxide (Milk Of Magnesia 30 Ml Oral.Susp) 30 ml PO DAILY PRN PRN Reason: Constipation Multivitamins/Vitamin C (Multivitamin Tablet) 1 tab PO DAILY [facility] Last Admin: 05/29/23 09:32 Dose: 1 tab Nicotine (Nicotine 21 Mg Patch.Td24) 21 mg TRANSDERMA DAILY [facility] Last Admin: 05/29/23 09:32 Dose: 21 mg Ondansetron HCl (Ondansetron Odt 4 Mg Tab.Rapdis) 4 mg TRANSLINGU Q6H PRN PRN Reason: Nausea and Vomiting Last Admin: 05/29/23 17:56 Dose: 4 mg Simethicone (Simethicone 80 Mg Tab.Chew) 80 mg PO QIDWMHS PRN PRN Reason: Gas Last Admin: 05/27/23 17:03 Dose: 80 mg Trazodone HCl (Trazodone Hcl 50 Mg Tablet) 50 mg PO BEDTIME MRX1 PRN PRN Reason: Insomnia Last Admin: 05/29/23 23:29 Dose: 50 mg Allergies Allergies Allergy/AdvReac Type Severity Reaction Status Date / Time No Known Allergies Allergy Unverified 03/03/20 19:39 [No Known Allergies*] Assessment & Plan Assessment & Plan (1) MDD (major depressive disorder): Status: Acute Code(s): F32.9 - Major depressive disorder, single episode, unspecified (2) Cocaine abuse: Status: Acute Code(s): F14.10 - Cocaine abuse, uncomplicated Plan Patient is a 32 year old male with no prior hx of psychiatric care who self presented to [facility] d/t suicidal ideation secondary to increased depression d/t homelessness and life stressors. Plan: CV 15 minute safety checks Referral to outpatient providers Possible referral to substance abuse program? [facility]WA Thiamine Folic acid Multivitamin Ativan 1mg PO Q4hr PRN CIWA 6-12 Ativan 2mg PO Q4hr PRN CIWA 13 and above Start: Clonidine 0.1mg PO BID 05/25: Continue current plans and regimen 05/26:Continue current regimen and plans 05/27: Patient reports he continues to feel depressed . CIWA DC'd; pt reports he is no longer having withdrawal symptoms. Discussed starting on an SSRI; risks/benefits reviewed, patient agreed to trial. denies SI/HI/VH/AH. DC Ativan orders, thiamine and folic acid. Start: Lexapro 10mg PO bedtime 05/28: Patient reports he continues to feel depressed . Patient stated, I'm feeling a little better than yesterday. I had a panic attack out of nowhere yesterday . Patient reports suicidal ideation with no plan; pt stated, I don't know why I feel this way . Observed social with peers. denies HI/VH/AH. Continue current tx plan. 05/29: Patient reports feeling good today. Patient stated, my mom is going to come see me today; I'm looking forward to that . Patient reports he plans to return to my tent when I leave here ; pt stated, my filled out a bunch of apartment applications and were just waiting to hear back from someone . denies SI/HI/VH/AH. 05/30: Patient reports feeling good today. Pt stated, I feel ready to go. I decided I'm going to go stay at my aunts house rather than the tent . Patient reports he plans on following up with outpatient providers. denies SI/HI/VH/AH. Plan to discharge tomorrow morning. Patient educated on: diagnosis, medication risk/benefits, substance abuse and therapeutic strategies Informed Consent: understands Reason for continued inpatient stay Substantial Risk for: stable for discharge Time Spent With Patient Time: Total time managing care of this patient today _30___ minutes.
[2023-05-30] MEDS: cloNIDine HCL 0.1 MG TABLET PO ×2 (10:01→23:15)
[2023-05-30] MEDS: Nicotine 21 MG PATCH.TD24 TRANSDERMA (10:01)
[2023-05-30] MEDS: Multivitamin TABLET 1 TAB PO (10:01)
[2023-05-30] MEDS: Magnesium Hydrox/Alum Hydrox 30 ML ORAL.SUSP PO (10:10)
[2023-05-30] MEDS: Loperamide HCl 2 MG CAPSULE PO (10:10)
[2023-05-30] MEDS: hydrOXYzine HCL 50 MG TABLET PO (17:25)
[2023-05-30 18:00] VITALS: BP 130/68; PULSE 84; RESP 18; TEMP 36.9; O2SAT 97
[2023-05-30] MEDS: traZODone HCL 50 MG TABLET PO ×2 (20:45→23:14)
[2023-05-30] MEDS: Escitalopram Oxalate 10 MG TABLET PO (23:15)
[2023-05-30] MEDS: Famotidine 20 MG TABLET PO (23:15)
[2023-05-30 23:18] VITALS: BP 132/68; PULSE 79
[2023-05-31 07:35] VITALS: BP 128/65; PULSE 82; RESP 14; TEMP 36.4; O2SAT 98
[2023-05-31] MEDS: Nicotine 21 MG PATCH.TD24 TRANSDERMA (08:59)
[2023-05-31] MEDS: cloNIDine HCL 0.1 MG TABLET PO (09:00)
[2023-05-31] MEDS: Naloxone HCl Nasal TAKE HOME 4 MG SPRAY 8 MG NOSTRILALT (09:00)
--- NOTE | 2023-05-31 09:16 | P.DS_ITS ---
DS: Providers Provider Date of Service: 05/31/23 Date of admission: 05/23/23 18:10 Date of discharge: 05/31/23 Primary care physician: [facility] Admitting clinician: Natasha Cruz Attending physician on admission: Johnnie Gandhi Consults: 05/23/23 20:49 Consult to Hospitalist Routine Comment: Consulting Provider: Hospitalist Reason For Exam: Transfer from [facility] Attending physician on discharge: Damien Joyce Discharging clinician: Natasha Cruz DS: Diagnosis Discharge Diagnosis (1) MDD (major depressive disorder): Status: Acute (2) Cocaine abuse: Status: Acute DS: Medications Discharge Medications Home Medications: Previous Rx's Medication Instructions Recorded clonidine HCl 0.1 mg tablet 0.1 mg PO BID 30 days #60 tabs 05/30/23 escitalopram oxalate 10 mg tablet 10 mg PO BEDTIME 30 days #30 tabs 05/30/23 famotidine 20 mg tablet 20 mg PO BEDTIME 30 days #30 tabs 05/30/23 hydroxyzine HCl 50 mg tablet 50 mg PO BID PRN anxiety 30 days 05/30/23 #60 tabs Mental Status Exam Mental Status Exam Narrative: Pt is alert and oriented; behavior is cooperative, friendly and calm; dressed in casual attire; mood is described as good ; eye contact appropriate; Speech is normal rate, volume and prosody and not pressured; no psychomotor agitation/retardation present; thought process is organized and goal directed; Thought content is on discharge; otherwise pertinent to relevant topics and without any delusional content, paranoid ideations or grandiosity; denies SI/HI. There is no evidence of perceptual disturbance. Patients insight and judgment are fair. Data Data Completed and Pending Completed studies during hospitalization [Text1]: 05/24/23 05/28/23 08:13 18:52 Vitamin B12 413 Folate 8.8 Influenza Type A (PCR) NEGATIVE Influenza Type B (PCR) NEGATIVE RSV RNA Qual (PCR) NEGATIVE SARS-CoV-2 RNA (RT-PCR) NEGATIVE DS: Summary Hospital Course Hospital Course: Patient is a 32 year old male with no prior hx of psychiatric care who self presented to [facility] d/t suicidal ideation secondary to increased depression d/t homelessness and life stressors. Per crisis report, patient has a hx of attempting to hanging himself 2 years ago and hx of cutting. He reports feeling hopeless and overwhelmed. During admission assessment, patient presents calm, cooperative, and tearful. Patient reports feeling depressed and anxious . Patient stated, I went to the hospital because I'm homeless and sleeping in the fu with my and her son's two dogs. I feel like the only reason we are homeless is because of the dogs. No one will accept the dogs and her son won't take them back . Patient reports he also has anger management issues . Pt stated, I have a lot of anger in me. My hit me and I took my anger out on the dog. I grabbed the dog by the collar and every time it tried to snap at me, I would hit him in the face so it wouldn't . He denies any prior psychiatric care;this is his first inpatient hospitalization. He reports daily marijuana use. Uses ETOH and cocaine occasionally . UTOX positive for marijuana. denies any current withdrawal symptoms. He reports suicidal ideation with no plan. Patient reports he would like a referral to an outpatient substance abuse program and referral to outpatient psychiatric providers. denies HI/AH/VH. During hospital course, CV 15 minute safety checks Referral to outpatient providers Possible referral to substance abuse program? [facility]WA Thiamine Folic acid Multivitamin Ativan 1mg PO Q4hr PRN CIWA 6-12 Ativan 2mg PO Q4hr PRN CIWA 13 and above Start: Clonidine 0.1mg PO BID Patient reports he continues to feel depressed . CIWA DC'd; pt reports he is no longer having withdrawal symptoms. Discussed starting on an SSRI; risks/benefits reviewed, patient agreed to trial. denies SI/HI/VH/AH. DC Ativan orders, thiamine and folic acid. Start: Lexapro 10mg PO bedtime Patient reports he continues to feel depressed . Patient stated, I'm feeling a little better than yesterday. I had a panic attack out of nowhere yesterday . Patient reports suicidal ideation with no plan; pt stated, I don't know why I feel this way . Observed social with peers. denies HI/VH/AH. Patient reports feeling good today. Patient stated, my mom is going to come see me today; I'm looking forward to that . Patient reports he plans to return to my tent when I leave here ; pt stated, my filled out a bunch of apartment applications and were just waiting to hear back from someone . denies SI/HI/VH/AH. Patient reports feeling good today. Pt stated, I feel ready to go. I decided I'm going to go stay at my aunts house rather than the tent . Patient reports he plans on following up with outpatient providers. denies SI/HI/VH/AH. Time spent discussing smoking cessation with patient: 3 to 10 minutes Status at Discharge Cognitive/behavioral status at discharge: Patient was interviewed prior to discharge and found to be fully oriented and without any SI or HI. Patient has insight and demonstrates good judgment in terms of wanting to pursue treatment. Patient is not in imminent risk of harm to self or others and has a safety plan that includes presenting to the closest ER or calling 911 if feeling unsafe. Patient has been observed closely by nursing and unit staff throughout admission; patient has not engaged in any behaviors that suggest dangerousness to self or others and has demonstrated appropriate behaviors and impulse control. Functional status at discharge: independent ambulation Overall status at discharge: patient is back to baseline Time Spent with Patient Time attestation: Total time managing care of this patient today _30___ minutes. Time spent: Less than 30 minutes Discharge Plan Discharge Anticipated Discharge Date/Time: 05/31/23 10:30 Patient Disposition: Home, Self-Care Discharge Diagnosis: MDD, Cocaine abuse, ETOH abuse Referrals: Tiana Prince (Therapy) [Other] - 06/05/23 11:00 am (IN OFFICE APPOINTMENT -Please arrive fifteen minutes early to your appointment in order to fill out necessary paperwork. ) Kenna Tristan (Psychiatry) [Other] - 06/26/23 11:00 am (TELEHEALTH APPOINTMENT -Psychiatric Evaluation ) Kenna Tristan (Psychiatry) [Other] - 07/25/23 2:00 pm (TELEHEALTH APPOINTMENT -Medication Management ) [facility] [Primary Care Provider] - 1 Week Discharge Medications: New famotidine 20 mg Tablet 20 mg PO BEDTIME 30 Days Qty: 30 0RF hydroxyzine HCl 50 mg Tablet 50 mg PO BID PRN (Reason: anxiety) 30 Days Qty: 60 0RF escitalopram oxalate 10 mg Tablet 10 mg PO BEDTIME 30 Days Qty: 30 0RF clonidine HCl 0.1 mg Tablet 0.1 mg PO BID 30 Days Qty: 60 0RF Protocol: Hold for SBP< HOLD for SBP < : 90 Discontinued Zyrtec 10 mg capsule 10 mg PO DAILY PRN (Reason: allergy symptoms) Qty: 14 0RF Discharge Orders: Discharge Order (Routine); Ordered 05/31/23 Ordered By: Natasha Cruz Diet: Regular diet Activity on Discharge: As tolerated Stand Alone Forms: Patient Portal Discharge page, Community Support Care Plan Goals: Maintain mood and safe behaviors Take medications as prescribed Continue to pursue sobriety Practice coping skills Continue with outpatient providers and reach out to them as needed Health Concerns: Mood stability and behaviors Sobriety Plan of Treatment: Follow up with your PCP, psychiatric provider and other outpatient providers regarding above concerns Take medications as prescribed Assessment: Patient was interviewed prior to discharge and found to be fully oriented and without any SI or HI. Patient has insight and demonstrates good judgment in terms of wanting to pursue treatment. Patient is not in imminent risk of harm to self or others and has a safety plan that includes presenting to the closest ER or calling 911 if feeling unsafe. Patient has been observed closely by nursing and unit staff throughout admission; patient has not engaged in any behaviors that suggest dangerousness to self or others and has demonstrated appropriate behaviors and impulse control. Discharge Date/Time: 05/31/23 09:34
== END 2023-05-31 09:34 | disposition home or self-care (01) | DRG 754 ==
PROVIDERS: Clinical Nurse Specialist Psychiatric/Mental Health, Adult; Psychiatry & Neurology Psychiatry; Admitting Provider Psychiatry & Neurology Psychiatry; Responsible Provider Registered Nurse; Visit Provider Psychiatry & Neurology Psychiatry
DX: F32.9 Major depressive disorder, single episode, unspecified (principal); F14.10 Cocaine abuse, uncomplicated; F90.9 Attention-deficit hyperactivity disorder, unspecified type; R19.7 Diarrhea, unspecified; Z20.822 Contact with and (suspected) exposure to COVID-19; Z59.02 Unsheltered homelessness; Z79.899 Other long term (current) drug therapy
CPT/HCPCS: 0241U; 36415; 80053; 80061; 82607; 82746; 82947; 83036; 83735; 84439; 84443

== ENCOUNTER → 2023-05-23 18:10 | Outpatient (BNV) | payer MEDICAID, SELFPAY | PROVIDERS: Admitting Provider Psychiatry & Neurology Psychiatry; Responsible Provider Registered Nurse; Visit Provider Student in an Organized Health Care Education/Training Program | DX: Z00.8 Encounter for other general examination (principal) | CPT/HCPCS: 99222 ==

== ENCOUNTER → 2023-05-23 18:10 | Outpatient (BNV) | payer OTHER, SELFPAY | PROVIDERS: Admitting Provider Psychiatry & Neurology Psychiatry; Responsible Provider Registered Nurse; Visit Provider Psychiatry & Neurology Psychiatry | DX: F33.2 Major depressive disorder, recurrent severe without psychotic features (principal); F14.10 Cocaine abuse, uncomplicated | CPT/HCPCS: 99231; 99232; 99233 ==